=== PATIENT | male | born 2000 | race Caucasian/White ===

== ENCOUNTER 2021-09-06 15:04 | Emergency (ER) | payer MEDICAID ==
[~2021-09-06] VITALS: Ht 175.3 cm; Wt 75.0 kg
[2021-09-06] MEDS ORDERED: KETOROLAC 60MG/2ML VIAL IM ONE (16:30)
[2021-09-06] MEDS ORDERED: IBUP-2029 MT (18:09)
[2021-09-06 18:24] VITALS: BP 131/81
== END 2021-09-06 18:24 | disposition home or self-care (01) ==
LOC: ER 15:04
DX: M25.562 Pain in left knee (principal); M25.561 Pain in right knee
CPT/HCPCS: 73562; 96372; 99283; J1885